=== PATIENT | female | born 1995 | race Caucasian/White ===

== ENCOUNTER 2021-11-19 07:30 | Emergency (ER) | payer MEDICAID ==
[~2021-11-19] VITALS: Ht 165.1 cm; Wt 50.0 kg
[2021-11-19 08:01] LABS: COVID AG,FIA SOURCE NASOPHARYNGEAL
[2021-11-19 08:14] LABS: RAPID GROUP A STREP NEGATIVE (NEGATIVE)
[2021-11-19 08:24] LABS: INFLUENZA TYPE A NEGATIVE FOR TYPE A (NEGATIVE); INFLUENZA TYPE B NEGATIVE FOR TYPE B (NEGATIVE)
[2021-11-19 08:41] VITALS: BP 127/74
== END 2021-11-19 09:17 | disposition home or self-care (01) ==
LOC: EMS 07:30
DX: B34.9 Viral infection, unspecified (principal); F41.9 Anxiety disorder, unspecified; Z20.822 Contact with and (suspected) exposure to COVID-19
CPT/HCPCS: 87430; 87804; 99283

== ENCOUNTER 2022-01-01 23:23 | Emergency (ER) | payer MEDICAID ==
[~2022-01-01] VITALS: Ht 162.6 cm; Wt 60.0 kg
[2022-01-02 00:06] VITALS: BP 111/68
[2022-01-02 00:06] LABS: COVID AG,FIA SOURCE NASOPHARYNGEAL
[2022-01-02] MEDS ORDERED: ACETAMINOPHEN 500 MG TABLET PO ONE (00:15)
[2022-01-02] MEDS ORDERED: GuaiFENesin/D-METHORPHAN [SUGAR-FREE] 200-20MG/10 ML SYRUP UDCUP PO ONE (00:15)
[2022-01-02 00:45] LABS: INFLUENZA TYPE A NEGATIVE FOR TYPE A (NEGATIVE); INFLUENZA TYPE B NEGATIVE FOR TYPE B (NEGATIVE)
[2022-01-02] MEDS ORDERED: ACET-66 PO (00:49)
[2022-01-02] MEDS ORDERED: GUAIFDM PO (00:49)
== END 2022-01-02 01:02 | disposition home or self-care (01) ==
LOC: EMS 23:28
DX: J06.9 Acute upper respiratory infection, unspecified (principal); Z20.822 Contact with and (suspected) exposure to COVID-19
CPT/HCPCS: 87430; 87804; 99283

== ENCOUNTER 2022-02-13 13:49 | Emergency (ER) | payer MEDICAID ==
[~2022-02-13] VITALS: Ht 162.6 cm; Wt 50.0 kg
[~2022-02-13 13:49] MED LIST: ACET-66 PO; GUAIFDM PO
[2022-02-13 16:45] VITALS: BP 119/62
== END 2022-02-13 17:11 | disposition home or self-care (01) ==
LOC: EMS 13:58
DX: S93.402A Sprain of unspecified ligament of left ankle, initial encounter (principal); X50.1XXA Overexertion from prolonged static or awkward postures, initial encounter; Y93.89 Activity, other specified; Y92.89 Other specified places as the place of occurrence of the external cause; Y99.8 Other external cause status
CPT/HCPCS: 99283

== ENCOUNTER 2022-07-03 14:39 | Emergency (ER) | payer MEDICAID ==
[~2022-07-03] VITALS: Ht 165.1 cm; Wt 50.5 kg
[2022-07-03 14:42] VITALS: BP 103/55
[2022-07-03] MEDS ORDERED: CORTOS OS (14:57)
[2022-07-03] MEDS ORDERED: CORTSOL AS (15:04)
== END 2022-07-03 15:08 | disposition home or self-care (01) ==
LOC: EMS 14:41
DX: H60.92 Unspecified otitis externa, left ear (principal)
CPT/HCPCS: 99283

== ENCOUNTER 2022-11-29 01:25 | Emergency (ER) | payer MEDICAID ==
[~2022-11-29] VITALS: Ht 165.1 cm; Wt 50.0 kg
[~2022-11-29 01:25] MED LIST changes: +CORTSOL AS
[2022-11-29 01:31] VITALS: BP 95/55; PULSE 68; RESP 18; TEMP 98
[2022-11-29] MEDS ORDERED: ACETAMINOPHEN 325 MG TABLET PO ONE (02:00)
== END 2022-11-29 02:33 | disposition home or self-care (01) ==
LOC: EMS 01:26
DX: S62.602A Fracture of unspecified phalanx of right middle finger, initial encounter for closed fracture (principal); X58.XXXA Exposure to other specified factors, initial encounter; Y93.61 Activity, american tackle football; Y92.89 Other specified places as the place of occurrence of the external cause; Y99.8 Other external cause status
CPT/HCPCS: 99283

== ENCOUNTER 2023-06-13 18:16 | Emergency (ER) | payer MEDICAID ==
[~2023-06-13] VITALS: Ht 165.1 cm; Wt 50.0 kg
[2023-06-13 18:55] LABS: COVID AG,FIA SOURCE NASAL SWAB
[2023-06-13 19:07] LABS: INFLUENZA TYPE A NEGATIVE FOR TYPE A (NEGATIVE); INFLUENZA TYPE B NEGATIVE FOR TYPE B (NEGATIVE); SARS-COV2 (COVID) ANTIGEN,FIA Negative (Negative)
[2023-06-13 19:10] LABS: RAPID GROUP A STREP POSITIVE (NEGATIVE)
[2023-06-13] MEDS: IBUPROFEN 400 MG TABLET PO ONE (19:35)
[2023-06-13] MEDS: AMOXICILLIN TRIHYDRATE 250 MG CAPSULE PO ONE (19:35)
[2023-06-13] MEDS ORDERED: AMOX500C2 PO (19:41)
[2023-06-13 19:42] VITALS: BP 129/80; PULSE 126; RESP 14; TEMP 98.2
== END 2023-06-13 19:50 | disposition home or self-care (01) ==
LOC: EMS 18:16
DX: J02.9 Acute pharyngitis, unspecified (principal); Z20.822 Contact with and (suspected) exposure to COVID-19
CPT/HCPCS: 87430; 87804; 99283

== ENCOUNTER 2025-01-18 19:09 | Emergency (ER) | payer MEDICAID ==
[~2025-01-18] VITALS: Ht 162.6 cm; Wt 50.5 kg
[~2025-01-18 19:09] MED LIST changes: -ACET-66 PO; +AMOX500C2 PO; -CORTSOL AS; -GUAIFDM PO
[2025-01-18 19:14] VITALS: TEMP 99.5
[2025-01-18 19:59] VITALS: BP 116/78; PULSE 11; RESP 18; O2SAT 99
[2025-01-18] MEDS: IBUPROFEN 600 MG TABLET PO ONE (20:27)
[2025-01-18] MEDS: ACETAMINOPHEN 500 MG TABLET PO ONE (20:27)
[2025-01-18] MEDS ORDERED: ACET-2080 PO (20:33)
[2025-01-18] MEDS ORDERED: IBUP-1554 PO (20:33)
[2025-01-18 22:06] LABS: INFLUENZA A-RTPCR,COMBO NEGATIVE (NEGATIVE); INFLUENZA B-RTPCR,COMBO NEGATIVE (NEGATIVE); RESPIRATORY SYNCYTIAL VRS-PCR NEGATIVE (NEGATIVE); SARS COVID19 RTPCR, COMBO NEGATIVE (NEGATIVE)
== END 2025-01-18 20:47 | disposition home or self-care (01) ==
LOC: EMS 19:09
DX: J02.8 Acute pharyngitis due to other specified organisms (principal); B97.89 Other viral agents as the cause of diseases classified elsewhere; Z20.822 Contact with and (suspected) exposure to COVID-19
CPT/HCPCS: 87081; 87430; 87637; 99283